=== PATIENT | male | born 1980 | race Caucasian/White ===

== ENCOUNTER 2020-10-17 13:09 | Emergency (ER) | payer OTHER, SELFPAY ==
[2020-10-17 13:10] VITALS: BP 160/100; PULSE 75; RESP 14; TEMP 36.3; O2SAT 100; BMI 28.4
--- NOTE | 2020-10-17 15:17 | VDUE_ITS ---
Reason For Study: PAIN Left Proximal Left jugular vein is spontaneous, widely patent, phasic, with no intraluminal echogenicity noted. Left subclavian vein is spontaneous, widely patent, phasic, with no intraluminal echogenicity noted. Left Arm Left axillary vein is spontaneous, patent, phasic, competent, compressible and demonstrates augmentation. Left Brachial V is DILATED and NONCOMPRESSIBLE from the Basilic V junction to mid forearm. Left Basilic V is DILATED and NONCOMPRESSIBLE from junction of the Brachial V to just below the anticubital. Left cephalic vein is compressible. Left Lower Arm Left radial vein is compressible. Left ulnar vein is compressible. VL/Venous Duplex US, Unilateral Interpretation Summary Acute deep vein thrombosis is noted in the left brachial vein. The remainder of the left upper extremity deep venous system is patent. Acute superficial thrombophlebitis is n oted in the left basilic vein in the upper arm, from its junction with the left brachial vein to just distal to the left antecubital space. The left cephalic vein is patent and compressible. Ordering Physician: Sergio Tian Performed By: Alessia Wan, SHAYLEE, RVT ?
[2020-10-17 15:35] LABS: Absolute Lymphocyte Count 2.22 X10^3/uL (0.83-4.51); Absolute Neutrophil Count 3.4 X10^3/uL (2.0-7.7); Basophil# 0.02 X10^3/uL; Basophil% 0.3 % (0-1); Eosinophil# 0.16 X10^3/uL; Eosinophils% 2.5 % (0-5); Hematocrit 45.5 % (40-54); Lymphocyte # 2.22 X10^3/ul (0.83-4.51); Mean Corp Hgb Conc 35.2 g/dL (32-36); Mean Corpuscular Volume 85.4 fL (80-94); Mean Platelet Vol. 8.2 fl (6.2-12.0); Monocyte% 10.7 % (0-10); NRBC Flagged by Analyzer 0 % (0-5); Neutrophil # 3.39 X10^3/uL (2.7-7.7); Platelet Count 185 K/mm3 (150-450); RBC Distribution Width CV 12.1 % (11.6-14.6); RBC Distribution Width SD 37.4 fl (35.1-43.9); Red Blood Count 5.33 M/mm3 (4.6-6.2); White Blood Count 6.5 K/mm3 (4.4-11.0)
[2020-10-17 15:49] LABS: Anion Gap 6 (5-15); BUN 14 mg/dL (7-18); BUN/Creat Ratio 13.1 RATIO (10-20); Calcium,Total 8.8 mg/dL (8.5-10.1); Chloride 107 mmol/L (98-107); Creatinine, Serum 1.07 mg/dL (0.70-1.30); EST Glomerular Filtration Rate 81 mL/min (>60); Est Glom Filt Rate - Afr Amer 98 mL/min (>60); Estimated Creatinine Clearance 100.73 ml/min; Glucose 94 mg/dL (74-106); Sodium Level 141 mmol/L (136-145)
[2020-10-17 17:18] VITALS: BP 161/94; PULSE 72
--- NOTE | 2020-10-17 17:41 | EX.ED.UPPERE ---
HPI History of Present Illness Chief Complaint: Upper Extremity Injury Informant: patient Onset/Context/Timing Onset: Days (2) Context: Gradual Onset Timing: Continuous Quality of Pain: Dull Location: Left elbow Worsened by: Extension of left elbow Relieved by: Nothing Narrative Narrative: Patient presents with pain and redness to the medial aspect of his left elbow that has been getting worse over the past 2 days. Patient is concerned over possible blood clot. Patient describes the pain is dull. Patient states it is worse with complete extension of his elbow. Patient states nothing seems to help with the pain. Patient denies any fevers or chills. Patient denies any trauma or injury. Patient denies any paresthesias or weakness. PFSH PFSH no medical history Home Medications cephalexin 500 mg PO Q6 #40 capsule 10/17/20 [Rx Last Taken Unknown] Allergy/AdvReac Type Severity Reaction Status Date / Time No Known Allergies Allergy Verified 10/17/20 13:12 no surgical history Social History Smoking Status: Never smoker ROS ROS ED Constitutional Constitutional ED: Denies chills or fever(s) Eyes Eyes: Denies blurry vision or change in vision ENT ENT ED: Denies rhinorrhea or sore throat Cardiovascular Cardiovascular: Denies chest pain or palpitations Respiratory/Chest Respiratory/Chest: Denies cough or dyspnea Gastrointestinal Gastrointestinal: Denies nausea or vomiting Genitourinary Genitourinary ED: Denies dysuria or hematuria Musculoskeletal Musculoskeletal: Denies back pain or neck pain Integumentary Denies abscess or rash Neurologic Neurologic: Denies headache(s) or weakness Allergic/Immunologic Allergic/Immunologic ED: Denies mouth swelling or urticaria EXAM Physical Exam Const Vital Signs: 10/17/20 13:10 10/17/20 17:18 Temperature 97.3 F L Temperature Source Temporal Pulse Rate 75 72 Respiratory Rate 14 Blood Pressure 160/100 H 161/94 H Blood Pressure Mean 120 116 Pulse Ox 100 Oxygen Delivery Method Room Air Positive well nourished and well developed General Appearance ED: well developed HEENT Reports moist mucous membranes normocephalic Neck full ROM and supple Resp normal respiratory effort and clear to auscultation bilaterally Cardio regular rate and regular rhythm GI non-tender Palpation: soft Extremity Extremity Narrative: There is some mild erythema over the medial aspect of the left elbow and distal humerus. There is no evidence of any abscess. There is no fluctuation. There is no induration. There is some mild tenderness. There is no discharge or drainage. Radial pulses are equal bilaterally. Strength is 5/5 bilaterally. There are no sensory deficits. Neuro oriented x3, CN's II-XII intact bilaterally, moves all extremities, no focal motor deficits and no sensory deficits noted Sensorium / Orientation: alert Psych mental status grossly normal MDM MDM MDM Narrative Medical decision making narrative: CBC and basic metabolic profile were obtained and were within normal limits. Venous duplex of the left upper extremity was unable to be obtained today since it is Monday. Patient was given a prescription to have this done on Monday as an outpatient. My suspicion for DVT is low. This appears to be more of a cellulitis. Patient was not given any anticoagulants. Patient was instructed to follow-up with his primary care physician in 5 to 7 days. Patient was given a prescription for Keflex. Patient understood and was agreeable with the plan. All questions were answered. Lab Data Attestation: I reviewed the patient's lab results. Labs: Laboratory Results - last 24 hr 10/17/20 10/17/20 15:30 15:30 WBC 6.5 RBC 5.33 Hgb 16.0 Hct 45.5 MCV 85.4 MCH 30.0 MCHC 35.2 RDW Std Deviation 37.4 RDW Coeff of Yazan 12.1 Plt Count 185 MPV 8.2 Immature Gran % (Auto) 0.500 Neut % (Auto) 52.0 Lymph % (Auto) 34.0 [place] % (Auto) 10.7 H Eos % (Auto) 2.5 Baso % (Auto) 0.3 Absolute Neuts (auto) 3.4 Absolute Lymphs (auto) 2.22 Nucleated RBC % 0 Sodium 141 Potassium 4.0 Chloride 107 Carbon Dioxide 28.0 Anion Gap 6 BUN 14 Creatinine 1.07 Estim Creat Clear Calc 100.73 Est GFR (MDRD) Af Amer 98 Est GFR (MDRD) Non-Af 81 BUN/Creatinine Ratio 13.1 Glucose 94 Calcium 8.8 Discharge Plan Triage Chief Complaint: Upper Extremity Injury ED Provider: Sergio Tian Dx/Rx/DC Orders Clinical Impression: Cellulitis of arm, left Instructions: ED Cellulitis Prescriptions: New cephalexin [cephalexin] 500 MG capsule 500 mg PO Q6 Qty: 40 RF: 0 Other Ambulatory Orders: Venous Duplex US, Unilateral (Routine) Facility: [facility] - Location: [facility] Ordered By: Dr. Sergio Tian Primary Care Provider: Care Physician,No Primary Referrals: Lonny Marrero MD [NON-STAFF] - 3-5 Days Care Physician,No Primary [Primary Care Provider] - Disposition Disposition: Home, self care Discharge Date/Time: 10/17/20 18:10
[2020-10-17 18:07] VITALS: PULSE 75; RESP 15
== END 2020-10-17 18:10 | disposition home or self-care (01) ==
PROVIDERS: Emergency Provider Emergency Medicine
DX: L03.114 Cellulitis of left upper limb (principal)
CPT/HCPCS: 80048; 85025; 93971; 99283

== ENCOUNTER 2020-10-18 12:41 | Emergency (ER) | payer OTHER, SELFPAY ==
[2020-10-17 13:10] VITALS: BMI 28.4
[2020-10-18 12:43] VITALS: BP 161/93; PULSE 77; RESP 16; TEMP 37.1; O2SAT 99; BMI 28.5
--- NOTE | 2020-10-18 12:58 | EX.ED.UPPERE ---
HPI History of Present Illness Chief Complaint: Upper Extremity Injury Informant: patient Onset/Context/Timing Onset: Days (Several) Context: Gradual Onset Timing: Continuous Quality of Pain: - (Sore) Location: Left forearm/upper arm Current Severity: Mild Maximum Severity: Mild Worsened by: Nothing Relieved by: Nothing Associated Symptoms Associated Symptoms: Negative for Parasthesia, Weakness and Loss of Funtion Narrative Narrative: Patient seen here yesterday for the same symptoms, spontaneous onset of redness and localized swelling in his medial left proximal forearm and distal upper arm, was put on Keflex until he had a vascular study which she had this morning as an outpatient and it is positive for thrombosis in the left brachial vein and left basilic vein. No other clots noted, the subclavian and internal jugular are clear ipsilaterally. He denies any chest pain, shortness of breath, near syncope, or any other systemic symptoms. 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 He denies having any primary relatives with clotting disorders that he knows of. PFSH PFSH no medical history Home Medications apixaban [Eliquis] 5 mg PO BID #74 tab 10/18/20 [Rx Last Taken Unknown] cephalexin 10/18/20 [History Last Taken Unknown] Allergy/AdvReac Type Severity Reaction Status Date / Time No Known Allergies Allergy Verified 10/17/20 13:12 Social History Smoking Status: Never smoker ROS ROS ED Constitutional Constitutional ED: Denies chills or fever(s) Cardiovascular Cardiovascular: Denies chest pain, dyspnea at rest or dyspnea on exertion Respiratory/Chest Respiratory/Chest: Denies dyspnea or dyspnea on exertion Musculoskeletal Musculoskeletal: Reports extremity pain; Denies neck pain Integumentary Reports erythema; Denies Abrasions or wounds Neurologic Neurologic: Denies paresthesias or weakness EXAM Physical Exam Const Vital Signs: 10/18/20 12:43 Temperature 98.7 F Temperature Source Temporal Pulse Rate 77 Respiratory Rate 16 Blood Pressure 161/93 H Blood Pressure Mean 115 Pulse Ox 99 Oxygen Delivery Method Room Air Positive well nourished and well developed General Appearance ED: well developed and NAD Neck full ROM and supple Back/Spine normal ROM and normal to inspection Extremity Extremity Narrative: Mildly tender locally diffusely swollen erythematous area throughout the medial left upper extremity, from about the distal upper arm to the mid-proximal forearm. No palpable cords. The area is mildly erythematous, blanching. Full range of motion. No lymphangitis. On the contralateral forearm he has several nodular subcutaneous nontender nonerythematous lesions that are more consistent with small lipomas then they are varicosities or vascular structures. Neuro oriented x3, no focal motor deficits and no sensory deficits noted Sensorium / Orientation: alert Psych mental status grossly normal and thought process normal Skin no wounds Skin Narrative: Erythema left medial forearm and arm, see above General Skin Exam: erythema Rashes: no rashes MDM MDM MDM Narrative Medical decision making narrative: Patient will likely need a hypercoagulable work-up given this unprovoked DVT in his left upper extremity. He has no PCP. His family sees Dr. Alamo, he is unsure if he will see him or the next doctor on the unassigned list, to whom he was referred. Prescribed Eliquis and advised to follow-up closely. He was advised that he can discontinue the antibiotic which she has taken 3 doses of. We discussed reasons to return he is comfortable with that plan. Discharge Plan Triage Chief Complaint: Upper Extremity Injury ED Provider: Patrick Hung Dx/Rx/DC Orders Clinical Impression: Acute deep vein thrombosis (DVT) of brachial vein of left upper extremity Instructions: ED Deep Vein Thrombosis (DVT) Prescriptions: New Eliquis 5 MG tablet 5 mg PO BID Qty: 74 RF: 0 No Action cephalexin 500 mg capsule RF: 0 Primary Care Provider: Care Physician,No Primary Referrals: Fast,Keshia, DO [NON-STAFF] - 1-2 Weeks Disposition Disposition: Home, self care
== END 2020-10-18 13:17 | disposition home or self-care (01) ==
PROVIDERS: Emergency Provider Emergency Medicine
DX: I82.622 Acute embolism and thrombosis of deep veins of left upper extremity (principal); Z79.01 Long term (current) use of anticoagulants
CPT/HCPCS: 99282

== ENCOUNTER → 2020-11-05 15:01 | Outpatient (CLI) | payer OTHER, SELFPAY ==
[2020-10-18 12:43] VITALS: BMI 28.5
--- NOTE | 2020-11-05 15:06 | VDUE_ITS ---
Reason For Study: DVT Left Proximal Left jugular vein is spontaneous, widely patent, phasic, with no intraluminal echogenicity noted. Left subclavian vein is spontaneous, widely patent, phasic, with no intraluminal echogenicity noted. Left Arm Left axillary vein is spontaneous, patent, phasic, competent, compressible and demonstrates augmentation. Brachial V is noncompressible at the Brachial- Basilic junction. Left cephalic vein is compressible. Basilic V is dilated and noncompressible from the junction of the Brachial V to just below the antecubital. Left Lower Arm Left radial vein is compressible. Left ulnar vein is compressible. VL/Venous Duplex US, Unilateral Interpretation Summary Acute deep vein thrombosis is noted in the left brachial vein near the brachial -basilic junction. The remainder of the left upper extremity deep venous system is patent. Acute s uperficial thrombophlebitis is noted in the left basilic vein from its junction with the b rachial vein to just below the antecubital space. The left cephalic vein is patent and compressible. Ordering Physician: Es Hoover Performed By: Jt Ortega RVT ?
== END ==
PROVIDERS: PCP Internal Medicine; Referring Provider Internal Medicine; Visit Provider Internal Medicine
DX: I82.622 Acute embolism and thrombosis of deep veins of left upper extremity (principal)
CPT/HCPCS: 93971

== ENCOUNTER → 2020-12-03 14:45 | Outpatient (CLI) | payer OTHER, SELFPAY ==
--- NOTE | 2020-12-03 14:49 | VDUE_ITS ---
Reason For Study: DVT Right Proximal Left Proximal Right jugular vein is spontaneous, widely Left jugular vein is spontaneous, widely patent, phasic, with no intraluminal patent, phasic, with no intraluminal echogenicity noted. echogenicity noted. Right subclavian vein is spontaneous, widely Left subclavian vein is spontaneous, widely patent, phasic, with no intraluminal patent, phasic, with no intraluminal echogenicity noted. echogenicity noted. Right Lower Arm Left Arm Right radial vein is compressible. Left axillary vein is spontaneous, patent, Right ulnar vein is compressible. phasic, competent, compressible and Right Arm demonstrates augmentation. Right axillary vein is spontaneous, patent, Left brachial vein is compressible. phasic, competent, compressible and Left cephalic vein is compressible. demonstrates augmentation. Chronic vein wall thickening is noted in the Right brachial vein is compressible. Basilic Vein. Right cephalic vein is compressible. Left Lower Arm Right basilic vein is compressible. Left radial vein is compressible. Left ulnar vein is compressible. Prelim faxed to [facility]. VL/Venous Duplex US - Kyle Extrem Interpretation Summary Deep veins of the upper extremities are bilaterally patent and compressible seg mentally. There is no evidence of deep vein thrombosis on either side. The superficial veins of the r ight upper extremity, the basilic and cephalic veins, are patent and compressible. There is no eviden ce of right upper extremity superficial thrombophlebitis involving the veins imaged. The left cep halic vein is patent and compressible. Chronic vein wall thickening is noted in the left basilic vei n. The acute thrombosis in the left upper extremity, noted in a prior study on 11/05/2020, bobbi ears to have resolved. Ordering Physician: Es Hoover Performed By: Mike Ortega RVT and Student ?
== END ==
PROVIDERS: PCP Internal Medicine; Referring Provider Internal Medicine; Visit Provider Internal Medicine
DX: Z86.718 Personal history of other venous thrombosis and embolism (principal)
CPT/HCPCS: 93970

== ENCOUNTER → 2022-08-23 | Outpatient (CLI) | payer OTHER, SELFPAY ==
--- NOTE | 2022-08-23 12:45 | VDUE_ITS ---
Reason For Study: Swelling Right Proximal Left Proximal Right subclavian vein is spontaneous, widely Left jugular vein is spontaneous, widely patent, phasic, with no intraluminal patent, phasic, with no intraluminal echogenicity noted. echogenicity noted. Left subclavian vein is spontaneous, widely patent, phasic, with no intraluminal echogenicity noted. Left Arm Left axillary vein is spontaneous, patent, phasic, competent, compressible and demonstrates augmentation. Left brachial vein is compressible. Left cephalic vein is compressible. Left Basilic vein is DILATED and NONCOMPRESSIBLE with hypoechoic intraluminal echogenicity extending from elbow to mid bicep. Left Lower Arm Left radial vein is compressible. Left ulnar vein is compressible. Patient Safety Preliminary results called to Erica Chery RN at Dr. Hoover's office. VL/Venous Duplex US, Unilateral Interpretation Summary Acute superficial vein thrombosis visualized in the left basilic vein Deep veins of the left upper extremity are patent and compressible segmentally. There is no evidence of deep vein thrombosis. Ordering Physician: Es Hoover Referring Physician: Es Hoover Performed By: Tunde Le, RVT ???
== END | disposition home or self-care (01) ==
LOC: CVS 12:44
PROVIDERS: PCP Internal Medicine; Referring Provider Internal Medicine; Visit Provider Internal Medicine
DX: M79.602 Pain in left arm (principal); M79.89 Other specified soft tissue disorders
CPT/HCPCS: 93971

== ENCOUNTER 2022-09-05 21:32 | Emergency (ER) | payer OTHER, SELFPAY ==
[2022-09-05 21:33] VITALS: BP 166/90; PULSE 76; RESP 16; TEMP 36.1; O2SAT 100; BMI 30.4
--- NOTE | 2022-09-05 23:44 | EX.ED.UPPERE ---
HPI History of Present Illness Chief Complaint: Upper Extremity Injury Informant: patient Narrative Narrative: Several days of painful redness medial aspect of the right elbow. No systemic symptoms, dyspnea, palpitations, syncope. Thinks it feels like SVT or DVT, both of which she has had any upper extremities in the past. Had an IV in the antecubital fossa of the right arm 2 weeks ago when he was in the ER and [place]. Concerned maybe he has a blood clot. History of factor V Leiden. Currently on no anticoagulants. [facility] Medical History (Updated 09/05/22 @ 23:[address] Patrick Hung MD) Acute deep vein thrombosis (DVT) of brachial vein of left upper extremity Factor V Leiden Home Medications apixaban 5 mg tablet (Eliquis) 5 mg PO BID #74 tabs 10/18/20 [Rx Last Taken Unknown] cephalexin 500 mg capsule 10/18/20 [History Last Taken Unknown] Allergy/AdvReac Type Severity Reaction Status Date / Time No Known Allergies Allergy Verified 10/17/20 13:12 Social History Smoking Status: Never smoker ROS ROS ED Constitutional Constitutional ED: Denies chills or fever(s) Musculoskeletal Musculoskeletal: Reports extremity pain; Denies neck pain Integumentary Denies Abrasions, rash or wounds Neurologic Neurologic: Denies paresthesias or weakness EXAM Physical Exam Const Vital Signs: 09/05/22 21:33 Temperature 96.9 F L Temperature Source Temporal Pulse Rate 76 Respiratory Rate 16 Blood Pressure 166/90 H Blood Pressure Mean 115 Pulse Ox 100 Oxygen Delivery Method Room Air Positive well nourished and well developed General Appearance ED: well developed and NAD Neck full ROM and supple Back/Spine normal ROM and normal to inspection Extremity full ROM Extremity Narrative: Mild tenderness at a large patch of blanching erythema without any other rash or skin findings at the medial aspect of the right elbow. It does not involve the area where his IV was, that area at the anterior antecubital fossa is benign appearing and well-healed. There are no palpable cords. There is no epitrochlear or axillary lymphadenopathy or lymphangitis. No induration or abscess. Neuro oriented x3, no focal motor deficits and no sensory deficits noted Sensorium / Orientation: alert Psych mental status grossly normal and thought process normal Skin no wounds Rashes: no rashes MDM MDM MDM Narrative Medical decision making narrative: Patient presents after hours, vascular ultrasound of the upper extremity is not available so I am covering the patient with Lovenox so that he can get evaluated with ultrasound in the morning. I am at a relatively low suspicion that this is a DVT but it is possible. Cellulitis is in the differential diagnosis, but we mutually agreed to not treated empirically since this is similar to when he had an SVT of the left upper extremity a couple weeks ago. Discharge Plan Triage Chief Complaint: Upper Extremity Injury ED Provider: Patrick Hung Dx/Rx/DC Orders Clinical Impression: Arm pain, right Instructions: ED Thrombophlebitis, Superficial Prescriptions: No Action cephalexin 500 mg capsule Eliquis 5 MG tablet 5 mg PO BID Qty: 74 0RF Rx Instructions: 10 mg twice a day for the first week. Then 5 mg twice a day. Other Ambulatory Orders: Venous Duplex US, Unilateral (Stat) Facility: [facility] - Location: [facility] Ordered By: Dr. Patrick Hung Primary Care Provider: Es Hoover Referrals: Es Hoover DO [Primary Care Provider] - (after the ultrasound tomorrow) Disposition Disposition: Home, Self Care
[2022-09-05] MEDS: Enoxaparin 100 MG/ML Syringe SC (23:53)
== END 2022-09-05 23:59 | disposition home or self-care (01) ==
PROVIDERS: Emergency Provider Emergency Medicine; PCP Internal Medicine; Visit Provider Emergency Medicine
DX: M79.601 Pain in right arm (principal); M25.521 Pain in right elbow
CPT/HCPCS: 96372; 99282

== ENCOUNTER → 2022-09-06 | Outpatient (CLI) | payer OTHER, SELFPAY ==
--- NOTE | 2022-09-06 10:57 | VDUE_ITS ---
Reason For Study: pain Right Proximal Right jugular vein is spontaneous, widely patent, phasic, with no intraluminal echogenicity noted. Right subclavian vein is spontaneous, widely patent, phasic, with no intraluminal echogenicity noted. Right Lower Arm Right radial vein is compressible. Right ulnar vein is compressible. Right Arm Right axillary vein is spontaneous, patent, phasic, competent, compressible and demonstrates augmentation. Right brachial vein is compressible. Right cephalic vein is compressible. Basilic V is DILATED and NONCOMPRESSIBLE from the medial cubital to the upper arm. No extension into the deep veins. Prelim called to Dr. Hoover's office. VL/Venous Duplex US, Unilateral Interpretation Summary Acute superficial vein thrombosis noted in the right basilic vein Ordering Physician: Patrick Hung Referring Physician: Es Hoover M.D. Performed By: Jt Ortega RVT ???
== END | disposition home or self-care (01) ==
LOC: CVS 10:56
PROVIDERS: PCP Internal Medicine; Referring Provider Emergency Medicine; Visit Provider Emergency Medicine
DX: M79.601 Pain in right arm (principal)
CPT/HCPCS: 93971

== ENCOUNTER → 2025-03-14 | Outpatient (CLI) | payer OTHER, SELFPAY ==
[2025-03-14 11:13] LABS: Mucous, Urine 0 SEEN /hpf (<or=2+); Red Blood Cells-Urine 0 SEEN /hpf (0-5); Squamous Epithelial Cells - UA 0 SEEN /hpf (0-5)
[2025-03-14 12:00] LABS: Color, Urine Yellow (Yellow); Glucose, Dipstick Normal (Normal); Ketone-Dipstick Negative (Negative); Leukocyte Esterase-Dipstick Negative /ul (Negative); Nitrite-Dipstick Negative (Negative); Occult Blood-Urine Negative /ul (Negative); Protein-Dipstick 30 mg/dl (Negative); Specific Gravity, Urine 1.020 (1.002-1.030); Urine Bilirubin Dipstick Negative (Negative)
[2025-03-14 12:29] LABS: Creatinine, Urine (random) 177.00 mg/dL (39.00-259.00); Microalbumin,Random Urine 15.8 mg/L (<20 mg/L)
[2025-03-14 12:37] LABS: Hematocrit 39.1 % (40-54); Hemoglobin 14.0 g/dL (13.0-16.5); Immature Granulocytes Count 0.020 X10^3/uL (0.0-0.0); Mean Corp Hgb Conc 35.8 g/dL (32-36); Mean Corpuscular Volume 86.1 fL (80-94); Mean Platelet Vol. 8.6 fl (6.2-12.0); NRBC Flagged by Analyzer 0 % (0-5); Platelet Count 170 K/mm3 (150-450); RBC Distribution Width CV 12.2 % (11.6-14.6); RBC Distribution Width SD 38.3 fl (35.1-43.9); Red Blood Count 4.54 M/mm3 (4.6-6.2); White Blood Count 7.6 K/mm3 (4.4-11.0)
[2025-03-14 12:53] LABS: AST(SGOT) 23 U/L (<=37); Alanine Aminotransfer ALT/SGPT 29 U/L (<=46); Albumin, Serum 4.3 g/dL (3.5-5.0); Alkaline Phosphatase 92 U/L (40-129); Anion Gap 11 (5-15); BUN 13 mg/dL (4-19); BUN/Creat Ratio 12.2 RATIO (10-20); Calcium,Total 8.9 mg/dL (7.6-11.0); Carbon Dioxide 24.1 mmol/L (21.0-32.0); Chloride 105 mmol/L (98-108); Cholesterol 107 mg/dL (<=200); Globulin 3.0 g/dL (2.2-4.2); Glucose 82 mg/dL (70-99); Low Density Lipoprotein Calc. 57 mg/dL; Magnesium 2.3 mg/dL (1.5-2.2); PSA,Total - Annual Screen 2.13 ng/mL (0.02-4.00); Potassium 3.8 mmol/L (3.3-5.1); Triglycerides 90 mg/dL; Very Low Density Lipoprotein 18 mg/dL (5-40); cholesterol:hdl ratio screen 3.34
== END | disposition home or self-care (01) ==
LOC: MTLAB 11:00
PROVIDERS: PCP Internal Medicine; Referring Provider Internal Medicine; Visit Provider Internal Medicine
DX: I10 Essential (primary) hypertension (principal); E78.1 Pure hyperglyceridemia
CPT/HCPCS: 36415; 80053; 80061; 81001; 82043; 82570; 83735; 84153; 84443; 85025; G0103